=== PATIENT | female | born 1970 | race Caucasian/White ===

== ENCOUNTER 2016-10-03 12:35 | Emergency (ER) | payer OTHER ==
[~2016-10-03] VITALS: Ht 157.5 cm; Wt 62.0 kg
[2016-10-03 12:39] VITALS: BP 165/90; PULSE 80; RESP 14; TEMP 98.2; O2SAT 100
[2016-10-03] MEDS ORDERED: SYNT112T PO (13:17)
[2016-10-03] MEDS ORDERED: IMIT100T PO (13:17)
[2016-10-03] MEDS ORDERED: CLON.5 PO (13:17)
[2016-10-03] MEDS ORDERED: ESTR0.5T3 PO (13:17)
[2016-10-03] MEDS ORDERED: MOBI7.5T PO (13:17)
[2016-10-03] MEDS ORDERED: TOPA100T11 PO (13:17)
[2016-10-03] MEDS ORDERED: ZOVI400T PO (13:17)
[2016-10-03] MEDS ORDERED: WELLTAB39 PO (13:17)
--- NOTE | 2016-10-03 13:24 | PD ---
HPI Chief Complaint: Skin Problem Time Seen by Provider: 13:24 Travel History International Travel<30 days: No Contact w/Intl Traveler<30days: No Traveled to known affect area: No History of Present Illness HPI 26-year-old female presents to emergency Department with complaint of pain, swelling, erythema to distal aspect of her left index finger times one week. She was complaining of pain 2 days prior to onset of symptoms. Symptoms have worsened throughout the week. She denies fever, chills, nausea, vomiting. Denies loss of sensation, paresthesias, decreased range of motion, decreased strength to the affected finger. Has not taken any medications or tried any treatments to alleviate her symptoms. Pain is aggravated with palpation and is a constant throbbing pain. Allergies to gabapentin, sulfa, Vicodin, Zoloft. No other modifying factors or associated signs and symptoms. PFSH Past Medical History ?: Not Past Surgical History Hysterectomy: Yes Social History Tobacco Use: No Allergies-Medications (Allergen,Severity, Reaction): Coded Allergies: Gabapentin (Verified Allergy, Severe, 10/03/16) Sulfa (Verified Allergy, Severe, 10/03/16) Vicodin (Verified Allergy, Severe, 10/03/16) Zoloft (Verified Allergy, Severe, 10/03/16) Reported Meds & Prescriptions Reported Meds & Active Scripts Active Ibuprofen 800 Mg Tab 800 Mg PO Q6HR PRN Clindamycin (Clindamycin HCl) 150 Mg Cap 450 Mg PO Q6H 10 Days Reported Imitrex (Sumatriptan Succinate) 100 Mg Tab 100 Mg PO ONCE PRN If a satisfactory response has not been obtained at 2 hours, a second dose may be administered Klonopin (Clonazepam) 0.5 Mg Tab 0.5 Mg PO DIRECTED Zovirax (Acyclovir) 400 Mg Tab 400 Mg PO DAILY Estrace (Estradiol) 0.5 Mg Tab 0.5 Mg PO DAILY Mobic (Meloxicam) 7.5 Mg Tab 7.5 Mg PO DAILY Topamax (Topiramate) 100 Mg Tab 100 Mg PO BID Synthroid (Levothyroxine Sodium) 112 Mcg Tab 112 Mcg PO DAILY Wellbutrin Xl 24 HR (Bupropion HCl) 300 Mg Tab 300 Mg PO BID Review of Systems Except as stated in HPI: all other systems reviewed are Neg Physical Exam Narrative GENERAL: Well-nourished, well-developed . Patient, in no acute distress SKIN: Warm and dry. Distal aspect of left index finger with erythema, edema, and an area to the tip that is fluctuant; finger with full range of motion and sensory intact. HEAD: Atraumatic. Normocephalic. EYES: Pupils equal and round. No scleral icterus. No injection or drainage. ENT: Mucosa pink and moist. Airway patent. NECK: Trachea midline. CARDIOVASCULAR: Regular rate. RESPIRATORY: No accessory muscle use. GASTROINTESTINAL: Flat. MUSCULOSKELETAL: No obvious deformities. No clubbing. No cyanosis. No edema. NEUROLOGICAL: Awake and alert. Oriented 3. No obvious cranial nerve deficits. Motor grossly within normal limits. Normal speech. PSYCHIATRIC: Appropriate mood and affect; insight and judgment normal. Data Data Last Documented VS Vital Signs Date Time Temp Pulse Resp B/P Pulse Ox O2 Delivery O2 Flow Rate FiO2 10/03/16 12:39 98.2 80 14 165/90 100 Room Air Orders Bupivacaine Pf 0.5% Inj (Marcaine Pf 0.5 (10/03/16 13:30) Lidocaine 1% Inj (50 Ml) (Xylocaine 1% I (10/03/16 13:30) Wound Culture And Gram Stain (10/03/16 13:24) [facility] Medical Decision Making Medical Screen Exam Complete: Yes Emergency Medical Condition: Yes Medical Record Reviewed: Yes Differential Diagnosis Cellulitis, paronychia, felon Narrative Course 46-year-old female physical exam consistent with cellulitis to the tip of her left index finger. There is an area of fluctuance at the tip of the finger. See my procedure note for incision and drainage. Wound culture pending. Patient up-to-date on tetanus vaccination. Clindamycin and ibuprofen prescribed for home. Patient verbalizes understanding and agreement with treatment plan. Patient is medically cleared and stable for discharge. Discussed reasons to return to the emergency department. Instructed patient to follow up with primary care provider. Patient agrees with treatment plan. The patients vital signs are stable and the patient is stable for outpatient follow- up and treatment. Patient discharged home, stable and in no acute distress. Procedures Procedure Narrative INCISION AND DRAINAGE: The area was prepped and was sterilely draped. The left index finger was digitally blocked with 0.5% bupivacaine and 1% lidocaine. A number 11 scalpel was used to make a less than 0.5 cm incision into the area of fluctuance. The abscess was drained, complex loculations were broken down, and irrigated with normal saline. Cultures were obtained. Sterile dressing applied. Diagnosis Primary Impression: Cellulitis of left index finger Referrals: Primary Care Physician Patient Instructions: Cellulitis (ED), General Instructions Departure Forms: Tests/Procedures, Work Release Enter return to work date: Oct 04, 2016 Additional Instructions: Complete full course of antibiotics Warm compresses or warm soaks to the affected finger Keep area clean and dry Ibuprofen or Tylenol as directed and as needed for pain and inflammation Follow-up with primary care provider Return to emergency department immediately with worsening of symptoms Med/Other Pt SpecificInfo: Prescription(s) given Scripts Fluconazole (Diflucan)150 Mg [id number] Mg PO ONCE #1 TAB Ref 0 Prov:Ananya Romero 10/03/16 Ibuprofen 800 Mg [id number] Mg PO Q6HR PRN (PAIN) #30 TAB Ref 0 Prov:Ananya Romero 10/03/16 Clindamycin 150 Mg [id number] Mg PO Q6H 10 Days Ref 0 Prov:Ananya Romero 10/03/16 Disposition: 01 DISCHARGE HOME Condition: Stable Ananya Romero Oct 03, 2016 13:24
[2016-10-03] MEDS ORDERED: BUPIVACAINE HCL PF 0.5% 10 ML VIAL INFIL ONE (13:30)
[2016-10-03] MEDS ORDERED: LIDOCAINE HCL 1% 50 ML VIAL INFIL ONE (13:30)
[2016-10-03] MEDS ORDERED: IBUP800T23 PO (13:39)
[2016-10-03] MEDS ORDERED: CLIN1CAP5 PO (13:39)
[2016-10-03] MEDS ORDERED: DIFL150T PO (14:07)
== END 2016-10-03 14:36 | disposition home or self-care (01) ==
LOC: NETRI 12:35
DX: L03.012 Cellulitis of left finger (principal); Z90.710 Acquired absence of both cervix and uterus; B95.61 Methicillin susceptible Staphylococcus aureus infection as the cause of diseases classified elsewhere
CPT/HCPCS: 10060; 86403; 87070; 87186